=== PATIENT | female | born 1955 | race Caucasian/White ===

== ENCOUNTER → 2020-03-18 17:41 | Outpatient (CLI) | payer OTHER, SELFPAY | PROVIDERS: PCP Psychiatry & Neurology Neurology; Visit Provider Family Medicine | DX: Z03.818 Encounter for observation for suspected exposure to other biological agents ruled out (principal) | CPT/HCPCS: 87635; G2023; U0003 ==

== ENCOUNTER 2021-09-28 12:54 | Inpatient (IN) | payer MEDICARE, OTHER, SELFPAY ==
[2021-09-28 12:55] VITALS: BP 138/65; PULSE 97; RESP 18; TEMP 36.4; O2SAT 97; BMI 28.9
--- NOTE | 2021-09-28 13:00 | RAD_ITS ---
STUDY: X-RAY - LEFT KNEE REASON FOR EXAM: Female, 66 years old. pain with walking TECHNIQUE: 4 view(s) of the knee. COMPARISON: None. FINDINGS: Normal visualized distal femur. Normal visualized proximal tibia and fibula. Normal proximal tibiofibular articulation. Normal medial femorotibial compartment. Normal lateral femorotibial compartment. Normal patellofemoral articulation. The soft tissue structures are unremarkable. RAD/Knee 4 or More Views IMPRESSION: Normal x-ray examination of the knee. Electronically Signed: Elijah Casper MD at 13:41 EST Tel , Service support ,
--- NOTE | 2021-09-28 13:17 | RAD_ITS ---
STUDY: X-RAY - RIGHT KNEE REASON FOR EXAM: Female, 66 years old. PAIN TECHNIQUE: . 4 view(s) of the knee. COMPARISON: None. FINDINGS: Normal visualized distal femur. Normal visualized proximal tibia and fibula. Normal proximal tibiofibular articulation. Normal medial femorotibial compartment. Normal lateral femorotibial compartment. Normal patellofemoral articulation. The soft tissue structures are unremarkable. RAD/Knee 4 or More Views IMPRESSION: Normal x-ray examination of the knee. Electronically Signed: Elijah Casper MD at 13:42 EST Tel , Service support ,
--- NOTE | 2021-09-28 15:46 | ED.VIS.LOWEX ---
HPI History of Present Illness Chief Complaint: Lower Extremity Injury Informant: patient and spouse/S.O. Narrative Narrative: Patient's had 2 or 3 days of knee pain. It started she thinks in her right knee but then quickly went to the left. Both are stiff. She is able to lift them and move them and walk but it is painful. No trauma. She has not had fevers or chills. She does have a history of arthritis mostly in her left knee. It will bother her sometimes but this is more than normal and it does not normally occur to both knees at the same time. She denies any other joints bothering her. She did have Covid vaccine about 2 weeks ago. She also just finished antibiotics yesterday for a dental infection of the right lower jaw. That is doing better. She is not sure what antibiotic that was. [facility] Medical History Arthritis Diabetes Home Medications hydrochlorothiazide 12.5 mg PO DAILY 09/28/21 [History Last Taken Unknown] insulin glargine [Lantus Solostar U-100 Insulin] 40 unit SUBCUT QHS 09/28/21 [History Last Taken Unknown] liraglutide [Victoza 3-Dion] 1.8 mg SUBCUT DAILY 09/28/21 [History Last Taken Unknown] metformin 1,000 mg PO BID 09/28/21 [History Last Taken Unknown] omeprazole 40 mg PO DAILY 09/28/21 [History Last Taken Unknown] Allergy/AdvReac Type Severity Reaction Status Date / Time Penicillins [PCN] Allergy Shortness Verified 09/28/21 12:59 of breath Sulfa (Sulfonamide Allergy Shortness Verified 09/28/21 12:59 Antibiotics) of breath Nacmuat-VKB-FqA Reductase AdvReac Other Verified 09/28/21 12:59 Inhibitor Surgical History Hx of appendectomy Hx of cholecystectomy Hx of hysterectomy Hx of rotator cuff surgery Social History Smoking Status: Never smoker ROS ROS ED Constitutional Constitutional ED: Denies chills or fever(s) ENT ENT ED: Denies rhinorrhea Cardiovascular Cardiovascular: Denies chest pain or palpitations Respiratory/Chest Respiratory/Chest: Denies dyspnea Gastrointestinal Gastrointestinal: Denies nausea or vomiting Genitourinary Genitourinary ED: Denies dysuria Musculoskeletal Musculoskeletal: Reports arthralgias; Denies back pain, myalgias or neck pain Integumentary Denies abscess or rash Neurologic Neurologic: Denies headache(s) Endocrine Endocrinology: Denies polydipsia or polyuria Hematologic/Lymphatic Hematologic/Lymphatic: Denies easy bleeding or easy bruising Allergic/Immunologic Allergic/Immunologic ED: Denies mouth swelling or urticaria EXAM Physical Exam Const Vital Signs: 09/28/21 12:55 09/28/21 21:20 Temperature 97.6 F L Temperature Source Temporal Pulse Rate 97 Respiratory Rate 18 Blood Pressure 138/65 H 129/54 H Blood Pressure Mean 89 79 Pulse Ox 97 Oxygen Delivery Method Room Air Positive well nourished and well developed General Appearance ED: well developed and NAD HEENT normocephalic and atraumatic Chest Wall inspection of chest normal Resp normal respiratory effort and clear to auscultation bilaterally Cardio regular rate and regular rhythm GI non-tender Palpation: soft Back/Spine no CVA tenderness Extremity Extremity Narrative: Patient's left knee has a minimal effusion. She states it normally is a bit swollen though. That is the knee with most arthritis. It is not red. It is not hot. I can passively move both knees. She can lift her legs off the bed. She can move her knees. She has pain diffusely around the knee. There is no leg swelling. There is no cord. There is no edema. Neuro Sensorium / Orientation: alert Psych mental status grossly normal Skin Lesions: no lesions Rashes: no rashes MDM MDM MDM Narrative Medical decision making narrative: Patient's x-ray show arthritic changes but no fracture. Her blood work was concerning for infection with elevated white count at 17.9. C-reactive protein was up at 240. ESR was high at 91. Electrolytes did show some mildly low potassium. Procedure: Left knee joint aspiration: With recent dental infection and those labs we did discuss risk benefits and proceeded to do arthrocentesis left knee. The area was sterilely prepped and draped with sterile towels. ChloraPrep was used. Full sterile gloves and mask was used. 4 cc of 1% lidocaine was infiltrated. Then an 18-gauge needle was used to aspirate approximately 13 cc of purulent yellow-white opaque thick fluid. Clinically this looks to be infected. Laboratory evaluation on the synovial fluid shows very likely signs of infection with almost 200,000 white count and PMN predominance. I discussed case with orthopedic surgeon, Dr. Domingo. He recommended antibiotics after tapping the other knee. The right knee is painful which is not typical for the patient. But is not red. It is not swollen. I did discuss this with the patient. We did attempt to aspirate this. I was able to get needle under the patella and pretty sure I was in joint space but could not get any fluid out. Patient will be admitted. She is given antibiotics. Procedure: Right knee joint aspiration: Same process used on first knee. Sterile prep and drape, ChloraPrep, 4 cc of 1% lidocaine, 18-gauge needle on 20 cc syringe. However I was not able to get any fluid out. Patient tolerated well. Lab Data Attestation: I reviewed the patient's lab results. Labs: Laboratory Results - last 24 hr 09/28/21 09/28/21 09/28/21 16:10 16:10 19:00 WBC 17.9 H RBC 4.48 Hgb 12.3 Hct 37.9 MCV 84.6 MCH 27.5 MCHC 32.5 RDW Std Deviation 45.3 H RDW Coeff of Yunior 14.7 H Plt Count 355 MPV 10.0 Immature Gran % (Auto) 0.800 Neut % (Auto) 70.4 H Lymph % (Auto) 15.6 L [place] % (Auto) 6.9 Eos % (Auto) 5.9 H Baso % (Auto) 0.4 Absolute Neuts (auto) 12.6 H Absolute Lymphs (auto) 2.78 Nucleated RBC % 0 Differential Comment SCANNED ESR 91 H Sodium 134 L Potassium 3.0 L Chloride 96 L Carbon Dioxide 29.0 Anion Gap 9 BUN 15 Creatinine 0.91 Estim Creat Clear Calc 48.10 Est GFR (MDRD) Af Amer 79 Est GFR (MDRD) Non-Af 66 BUN/Creatinine Ratio 16.5 Glucose 123 H Calcium 9.4 C-React Prot Ext Range 240.00 H Fluid Crystals See PATH REV Fluid Crystal Source SYNOVIAL Fl Crystal Path Review Will follow Synovial Source LEFT KNEE Synovial Color Yellow Synovial Appearance Turbid Synovial WBC 198.2400 H Synovial RBC 0.080 H Synovial Tot Cell Ct 201.0800 H Synov Polynuclear WBCs 153.300 Synov Mononuclear WBCs 45.920 Synovial Neutrophils 98 H Synovial Lymphocytes 2 Synovial Polynuclear % 76.8 Synovial Mononuclear % 23.[address] Comment May follow Radiography Diagnostic Testing: Clinical Impression(s) from Imaging Studies Knee X-Ray 09/28/21 13:00 IMPRESSION: Normal x-ray examination of the knee. Electronically Signed: Elijah Casper MD at 13:41 EST Tel , Service support , Knee X-Ray 09/28/21 13:17 IMPRESSION: Normal x-ray examination of the knee. Electronically Signed: Elijah Casper MD at 13:42 EST Tel , Service support , Procedures Other Procedures Procedure(s): See medical decision making note. Discharge Plan Dx/Rx/DC Orders Clinical Impression: Septic arthritis, Leukocytosis, Knee pain Disposition Disposition: Acute Care [facility]
[2021-09-28 16:19] LABS: Absolute Lymphocyte Count 2.78 X10^3/uL (0.83-4.51); Absolute Neutrophil Count 12.6 X10^3/uL (2.0-7.7); Basophil# 0.07 X10^3/uL; Basophil% 0.4 % (0-1); Eosinophil# 1.06 X10^3/uL; Eosinophils% 5.9 % (0-5); Hematocrit 37.9 % (37-47); Hemoglobin 12.3 g/dL (12.0-15.0); Lymphocyte # 2.78 X10^3/ul (0.83-4.51); Lymphocyte % 15.6 % (19-41); Mean Corp Hgb Conc 32.5 g/dL (32-36); Mean Corpuscular Hgb 27.5 pg (27.0-32.0); Mean Corpuscular Volume 84.6 fL (81-99); Monocyte# 1.24 X10^3/uL; Monocyte% 6.9 % (0-10); NRBC Flagged by Analyzer 0 % (0-5); Neutrophil # 12.57 X10^3/uL (2.7-7.7); Neutrophil % 70.4 % (47-70); POSITIVE MORPHOLOGY YES; Platelet Count 355 K/mm3 (150-450); RBC Distribution Width CV 14.7 % (11.6-14.6); RBC Distribution Width SD 45.3 fl (35.1-43.9); Red Blood Count 4.48 M/mm3 (4.2-5.4); White Blood Count 17.9 K/mm3 (4.4-11.0)
[2021-09-28 16:21] LABS: Differential Indicated SCAN CRITERIA MET
[2021-09-28 16:34] LABS: Erythrocyte Sedimentation Rate 91 mm/hr (0-30)
[2021-09-28 16:43] LABS: Anion Gap 9 (5-15); BUN 15 mg/dL (7-18); BUN/Creat Ratio 16.5 RATIO (10-20); Calcium,Total 9.4 mg/dL (8.5-10.1); Chloride 96 mmol/L (98-107); Creatinine, Serum 0.91 mg/dL (0.55-1.02); EST Glomerular Filtration Rate 66 mL/min (>60); Est Glom Filt Rate - Afr Amer 79 mL/min (>60); Glucose 123 mg/dL (74-106); Sodium Level 134 mmol/L (136-145)
[2021-09-28 16:46] LABS: Differential Comment SCANNED
[2021-09-28] MEDS: Lidocaine 1% (20 ml mdv) 20 ML Vial 10 ML INFILT (17:55)
[2021-09-28 19:32] LABS: Pathologist Comment May follow
[2021-09-28 20:19] LABS: AUTO B FLUID DILUENT BKGD CT WBC <0.1 RBC <0.01 (W<.1,R<.01)
[2021-09-28 20:20] LABS: Source- Body Fluid SYNOVIAL
[2021-09-28 20:21] LABS: Appearance /Synovial Fluid Turbid (CLEAR); Color / Synovial Fluid Yellow (Pale Yellow); Source / Synovial Fluid LEFT KNEE
[2021-09-28 21:20] VITALS: BP 129/54
[2021-09-28 22:04] LABS: CRYSTALS, BODY FLUID See PATH REV; Lymph 2 %; Neutrophil 98 % (0-25)
[2021-09-28 22:05] LABS: Body Fluid QC Type(s) BF1Q.BF2Q
[2021-09-28 23:41] LABS: Synovial Fld Mononuclear WBC % 23.2 %; Synovial Fld Polynuclear WBC % 76.8 %
[2021-09-29] VITALS (13 sets, daily range): BP systolic 118–168; BP diastolic 60–90; PULSE 82–88; RESP 16–18; TEMP 36.4–38.2; O2SAT 92–100; BMI 27.9
--- NOTE | 2021-09-29 00:03 | HP.PCM.HOS_ITS ---
HPI - General General Date of Admission: 09/28/21 HPI Narrative ADELE GALAVIZ, is a 66 F with a significant for diabetes mellitus who presents to the emergency department with a persistence left knee pain that started about 3 days ago [employer]IE[employer]ATOR. Associated with her symptoms is swelling of the left knee. The pain increases with movements. She denies any ameliorating factors to the pain. Also patient has some mild pain in her right knee. Reportedly she recently completed antibiotics for dental infection. [facility] Medical History Arthritis Diabetes Home Medications hydrochlorothiazide 12.5 mg PO DAILY 09/28/21 [History Last Taken Unknown] insulin glargine [Lantus Solostar U-100 Insulin] 40 unit SUBCUT QHS 09/28/21 [History Last Taken Unknown] liraglutide [Victoza 3-Dion] 1.8 mg SUBCUT DAILY 09/28/21 [History Last Taken Unknown] metformin 1,000 mg PO BID 09/28/21 [History Last Taken Unknown] omeprazole 40 mg PO DAILY 09/28/21 [History Last Taken Unknown] Allergy/AdvReac Type Severity Reaction Status Date / Time Penicillins [PCN] Allergy Shortness Verified 09/28/21 12:59 of breath Sulfa (Sulfonamide Allergy Shortness Verified 09/28/21 12:59 Antibiotics) of breath Psamopp-SBK-XzI Reductase AdvReac Other Verified 09/28/21 12:59 Inhibitor Surgical History Hx of appendectomy Hx of cholecystectomy Hx of hysterectomy Hx of rotator cuff surgery Social History Smoking Status: Never smoker ROS ROS Narrative Constitutional: Denies fever, chills, fatigue, anorexia and change in weight Eyes: Denies blurry vision, change in eye color, change in vision, discharge from eye(s), double vision, erythema, eye pain, loss of vision or other HEENT: Denies abnormal hearing, dysphagia, ear pain, epistaxis, headache(s), hearing loss, nasal congestion, nasal discharge, post nasal drip, sinus pressure, sore throat or other Cardiovascular: Denies chest pain or palpitations. Denies dyspnea on exertion, orthopnea and paroxysmal nocturnal dyspnea Respiratory/Chest: Denies cough, excessive phlegm production, shortness of breath with exertion and wheezing Gastrointestinal: Denies abdominal pain, coffee ground emesis, constipation, diarrhea, dyspepsia, hematemesis, hematochezia, loose stools, melena, nausea, vomiting or other Genitourinary: Denies burning urination, difficulty urinating, dysuria, hematuria, nocturia, urinary frequency, urinary hesitancy, urinary incontinence, urinary urgency or other Musculoskeletal: Bilateral knee pain, left worse than right. Swelling of left knee. Neurologic: Denies abnormal gait, abnormal speech, confusion, disequilibrium, dizziness, focal weakness, headache(s), numbness, paresthesias, seizure-like activity, seizures, syncope, tingling, tremor(s) or other Psychiatric: Denies anxiety, depression, homicidal ideation, suicidal ideation or other Endocrinology: Denies change in body appearance, cold intolerance, excessive sweating, heat intolerance, polydipsia, polyuria or other Hematologic/Lymphatic: Denies anemia, easy bleeding, easy bruising, lymphadenopathy or other Integumentary: Denies rashes Allergic/Immunologic: Denies rhinitis, hives, eczema, asthma or other Vital Signs Vital Signs Vital Signs: 09/28/21 12:55 09/28/21 21:20 Temperature 97.6 F L Temperature Source Temporal Pulse Rate 97 Respiratory Rate 18 Blood Pressure 138/65 H 129/54 H Blood Pressure Mean 89 79 Pulse Ox 97 Oxygen Delivery Method Room Air Weight Weight: 71.668 kg Body Mass Index (BMI) 28.9 Physical Exam Narrative Physical exam: General: Well-nourished, well-developed. Head: Normocephalic, atraumatic, no tenderness Eyes: PERRLA, EOMI ENT, no trauma, moist mucous membranes, no rhinorrhea Neck: Nontender, full range of motion, no spinal tenderness, deformities, step- off CVS: Regular rate and rhythm. S1-S2 present. No murmur, gallop or rub. Respiratory : clear to auscultation bilaterally, chest wall nontender, no wheezing Abdomen: Soft, nontender, nondistended, normal bowel sounds, no masses : Deferred Back: Nontender, no CVA tenderness, no midline spinal tenderness, deformities, step-offs Extremities: Left knee tenderness and increased warmth of left knee. Right knee with no tenderness and no increase in warmth. Skin: Normal color, no trauma, abrasions Neuro: Alert, oriented, cranial nerves II through XII grossly intact. Psychiatry: Normal mood. Normal affect. Not depressed. Not anxious. Results Lab / Micro Data Result Diagrams: 09/29/21 05:19 09/29/21 05:19 Labs: Laboratory Results - last 24 hr 09/28/21 16:10: WBC 17.9 H, RBC 4.48, Hgb 12.3, Hct 37.9, MCV 84.6, MCH 27.5, MCHC 32.5, RDW Std Deviation 45.3 H, RDW Coeff of Yunior 14.7 H, Plt Count 355, MPV 10.0, Immature Gran % (Auto) 0.800, Neut % (Auto) 70.4 H, Lymph % (Auto) 15.6 L , [place] % (Auto) 6.9, Eos % (Auto) 5.9 H, Baso % (Auto) 0.4, Absolute Neuts (auto) 12.6 H, Absolute Lymphs (auto) 2.78, Nucleated RBC % 0, Differential Comment SCANNED, ESR 91 H 09/28/21 16:10: Sodium 134 L, Potassium 3.0 L, Chloride 96 L, Carbon Dioxide 29.0, Anion Gap 9, BUN 15, Creatinine 0.91, Estim Creat Clear Calc 48.10, Est GFR (MDRD) Af Amer 79, Est GFR (MDRD) Non-Af 66, BUN/Creatinine Ratio 16.5, Glucose 123 H, Calcium 9.4, C-React Prot Ext Range 240.00 H 09/28/21 19:00: Fluid Crystals See PATH REV, Fluid Crystal Source SYNOVIAL, Fl Crystal Path Review Will follow, Synovial Source LEFT KNEE, Synovial Color [place] ow, Synovial Appearance Turbid, Synovial WBC 198.2400 H, Synovial RBC 0.080 H, Synovial Tot Cell Ct 201.0800 H, Synov Polynuclear WBCs 153.300, Synov Mononuclear WBCs 45.920, Synovial Neutrophils 98 H, Synovial Lymphocytes 2, Synovial Polynuclear % 76.8, Synovial Mononuclear % 23.2, Synovial Path Comment May follow Micro: Microbiology 09/28/21 23:11 Nasal Secretion SARS-CoV-2 Antigen (Rapid) - Final 09/28/21 19:00 Fluid - Synovial (joint) Gram Stain - Preliminary Radiology Impression Knee X-Ray 09/28/21 13:00 IMPRESSION: Normal x-ray examination of the knee. Electronically Signed: Elijah Casper MD at 13:41 EST Tel , Service support , Knee X-Ray 09/28/21 13:17 IMPRESSION: Normal x-ray examination of the knee. Electronically Signed: Elijah Casper MD at 13:42 EST Tel , Service support , Assessment & Plan Assessment/Plan (1) Septic arthritis: QUALIFIERS: Laterality: left Septic arthritis location: knee Septic arthritis organism: due to unspecified organism Qualified Code(s): M00.9 - Pyogenic arthritis, unspecified PLAN: Septic arthritis of left knee X-ray of the knee was independently interpreted and agree radiologist interpretation above. Emergency department reported pus from left knee aspiration. There was no fluid to be aspirated from right knee CBC reviewed showed 17.8. Trend CBC. C-reactive protein at the ED was 240. Synovial fluid showed elevated white count Patient has allergy to penicillin. Was started on vancomycin at the emergency department. Discussed with emergent department doctor who started aztreonam. Will continue vancomycin and aztreonam. Emergency department doctor discussed the case with orthopedic doctor who is considering a washout. We will keep patient n.p.o. Orthopedic consult. Hypokalemia On presentation potassium was 3.0. P.o. and IV potassium ordered. Trend BMP. Charges/Coding Visit Charges Inpatient E&M: 11373 Init Hosp L3
[2021-09-29 02:23] LABS: Magnesium 1.8 mg/dL (1.6-2.6)
[2021-09-29] MEDS: Potassium Chloride Oral Tablet 20 MEQ 40 MEQ PO (02:35)
[2021-09-29] MEDS: Acetaminophen 325 MG Tablet 650 MG PO ×2 (02:36→11:14)
[2021-09-29] MEDS: Lactated Ringers 1,000 ML 60 ML IV ×2 (02:40→17:26)
[2021-09-29 02:50] LABS: Bedside Glucose 145 mg/dL (70-110)
--- NOTE | 2021-09-29 03:08 | PCS.PANDOC ---
PANDEMIC DOCUMENTATION INITIATED: Date: 09/29/2020 Time: 020
--- NOTE | 2021-09-29 03:46 | PCM.RX.CS ---
Consult Pharmacy has been consulted to manage selected antiobiotic: Vancomycin Type of Consult: Follow-up Labs: Sodium 134 mmol/L (136-145) L 09/28/21 16:10 Potassium 3.0 mmol/L (3.5-5.1) L 09/28/21 16:10 Chloride 96 mmol/L (98-107) L 09/28/21 16:10 Carbon Dioxide 29.0 mmol/L (21.0-32.0) 09/28/21 16:10 Anion Gap 9 (5-15) 09/28/21 16:10 BUN 15 mg/dL (7-18) 09/28/21 16:10 Creatinine 0.91 mg/dL (0.55-1.02) 09/28/21 16:10 Est GFR (MDRD) Af Amer 79 mL/min (>60) 09/28/21 16:10 Est GFR (MDRD) Non-Af 66 mL/min (>60) 09/28/21 16:10 BUN/Creatinine Ratio 16.5 RATIO (10-20) 09/28/21 16:10 Glucose 123 mg/dL (74-106) H 09/28/21 16:10 Microbiology: Microbiology 09/28/21 23:11 Nasal Secretion SARS-CoV-2 Antigen (Rapid) - Final 09/28/21 19:00 Fluid - Synovial (joint) Gram Stain - Preliminary Goal Trough: 15-20 mcg/mL Pharmacy Plan for Drug Dosing: Pharmacy Service will continue to monitor and adjust dosing as required. Medications Vancomycin HCl 1,750 mg/ (Sodium Chloride) 535 mls @ 250 mls/hr IV X1 ONE Stop: 09/29/21 04:38 Last Admin: 09/29/21 02:40 Dose: Not Given Documented by: Vancomycin HCl 750 mg/ Sodium (Chloride) 265 mls @ 250 mls/hr IV Q12H [facility] Follow-Up Labs: Trough Vancomycin Labs to be done on [date and time ordered]: 09/29 @ 1500
[2021-09-29] MEDS: Potassium Chloride 10mEq/100mL 10 MEQ/100 ML IV.SOLN. 100 MEQ IV BOLUS ×6 (05:24→10:36)
[2021-09-29 05:55] LABS: Absolute Lymphocyte Count 3.48 X10^3/uL (0.83-4.51); Absolute Neutrophil Count 12.8 X10^3/uL (2.0-7.7); Basophil# 0.05 X10^3/uL; Basophil% 0.3 % (0-1); Eosinophil# 0.01 X10^3/uL; Eosinophils% 0.1 % (0-5); Hemoglobin 11.8 g/dL (12.0-15.0); Lymphocyte # 3.48 X10^3/ul (0.83-4.51); Lymphocyte % 19.6 % (19-41); Mean Corp Hgb Conc 32.8 g/dL (32-36); Mean Corpuscular Volume 85.5 fL (81-99); Monocyte# 1.39 X10^3/uL; Monocyte% 7.8 % (0-10); NRBC Flagged by Analyzer 0 % (0-5); Neutrophil # 12.76 X10^3/uL (2.7-7.7); Neutrophil % 71.6 % (47-70); Platelet Count 341 K/mm3 (150-450); RBC Distribution Width CV 14.7 % (11.6-14.6); RBC Distribution Width SD 45.7 fl (35.1-43.9); Red Blood Count 4.21 M/mm3 (4.2-5.4); White Blood Count 17.8 K/mm3 (4.4-11.0)
[2021-09-29 06:20] LABS: Anion Gap 8 (5-15); BUN 14 mg/dL (7-18); Calcium,Total 9.1 mg/dL (8.5-10.1); Chloride 100 mmol/L (98-107); Creatinine, Serum 0.88 mg/dL (0.55-1.02); EST Glomerular Filtration Rate 69 mL/min (>60); Est Glom Filt Rate - Afr Amer 83 mL/min (>60); Estimated Creatinine Clearance 49.74 ml/min; Glucose 146 mg/dL (74-106); Potassium 2.9 mmol/L (3.5-5.1); Sodium Level 137 mmol/L (136-145)
--- NOTE | 2021-09-29 06:40 | RAD_ITS ---
STUDY: X-RAY CHEST REASON FOR EXAM: Female, 66 years old. Surgery TECHNIQUE: Single AP portable view of the chest. COMPARISON: None. FINDINGS: The lungs are clear and expanded. There is no demonstrated pleural abnormality. Normal size heart. Normal mediastinum and kenrick. Normal visualized pulmonary arteries. There is atherosclerotic calcification of the aortic arch with tortuosity. Normal visualized thoracic spine. Normal visualized ribs, clavicles, and shoulders. There is no demonstrated abnormality of the visualized soft tissue structures of the upper abdomen. RAD/Chest 1 View (Portable) IMPRESSION: No acute abnormality is seen. Electronically Signed: Devan Singleton MD at 8:52 EST , Service support ,
--- NOTE | 2021-09-29 06:41 | EKG12_ITS ---
Test Reason : PRE-OP Blood Pressure : / mmHG Vent. Rate : 086 BPM Atrial Rate : 086 BPM P-R Int : 160 ms QRS Dur : 082 ms QT Int : 344 ms P-R-T Axes : 051 037 053 degrees QTc Int : 411 ms Normal sinus rhythm Low voltage QRS Borderline ECG When compared with ECG of 31-JUL-2010 13:01, No significant change was found Confirmed by YAIR JAIME, WARD ([id number]), primer expeditor and drier REDD CALERO ([id number]) on 10/10/2021 8:03:07 AM Referred By: [address] Confirmed By:DOMONIQUE MAZARIEGOS MD
--- NOTE | 2021-09-29 07:44 | PCM.PN.HOSP ---
Subjective Subjective The patient was admitted with bilateral knee pain initially right knee pain persistent for 3 days and then moved to left knee. Patient had arthrocentesis of left knee in ED which shows synovial WBC 201,000, 98% neutrophils, 2% lymphocyte. History of diabetes mellitus. No fever during hospital course. On IV vancomycin and aztreonam Objective Data Objective Data Vital Signs: Vital Signs Temp Pulse Resp BP Pulse Ox 99.6 F H 88 18 131/60 H 100 09/29/21 02:15 09/29/21 02:15 09/29/21 02:15 09/29/21 02:15 09/29/21 02:15 Oxygen Delivery Method Room Air Weight: 152 lb 12.485 oz Body Mass Index (BMI) 27.9 Intake & Output: Intake and Output for Last 24 Hours 09/27/21 09/28/21 09/29/21 23:59 23:59 23:59 Intake Total 641.67 / 641.67 Balance 641.67 / 641.67 Lab / Micro Data Result Diagrams: 09/29/21 05:19 09/29/21 05:19 Labs: Laboratory Results - last 24 hr 09/28/21 16:10: WBC 17.9 H, RBC 4.48, Hgb 12.3, Hct 37.9, MCV 84.6, MCH 27.5, MCHC 32.5, RDW Std Deviation 45.3 H, RDW Coeff of Yunior 14.7 H, Plt Count 355, MPV 10.0, Immature Gran % (Auto) 0.800, Neut % (Auto) 70.4 H, Lymph % (Auto) 15.6 L, [place] % (Auto) 6.9, Eos % (Auto) 5.9 H, Baso % (Auto) 0.4, Absolute Neuts (auto) 12.6 H, Absolute Lymphs (auto) 2.78, Nucleated RBC % 0, Differential Comment SCANNED, ESR 91 H 09/28/21 16:10: Sodium 134 L, Potassium 3.0 L, Chloride 96 L, Carbon Dioxide 29.0, Anion Gap 9, BUN 15, Creatinine 0.91, Estim Creat Clear Calc 48.10, Est GFR (MDRD) Af Amer 79, Est GFR (MDRD) Non-Af 66, BUN/Creatinine Ratio 16.5, Glucose 123 H, Calcium 9.4, C-React Prot Ext Range 240.00 H 09/28/21 16:10: Magnesium 1.8 09/28/21 19:00: Fluid Crystals See PATH REV, Fluid Crystal Source SYNOVIAL, Fl Crystal Path Review Will follow, Synovial Source LEFT KNEE, Synovial Color Yellow, Synovial Appearance Turbid, Synovial WBC 198.2400 H, Synovial RBC 0.080 H, Synovial Tot Cell Ct 201.0800 H, Synov Polynuclear WBCs 153.300, Synov Mononuclear WBCs 45.920, Synovial Neutrophils 98 H, Synovial Lymphocytes 2, Synovial Polynuclear % 76.8, Synovial Mononuclear % 23.2, Synovial Path Comment May follow 09/29/21 02:35: POC Glucose 145 H 09/29/21 05:19: WBC 17.8 H, RBC 4.21, Hgb 11.8 L, Hct 36.0 L, MCV 85.5, MCH 28.0, MCHC 32.8, RDW Std Deviation 45.7 H, RDW Coeff of Yunior 14.7 H, Plt Count 341, MPV 10.0, Immature Gran % (Auto) 0.600, Neut % (Auto) 71.6 H, Lymph % (Auto) 19.6, [place] % (Auto) 7.8, Eos % (Auto) 0.1, Baso % (Auto) 0.3, Absolute Neuts (auto) 12.8 H, Absolute Lymphs (auto) 3.48, Nucleated RBC % 0 09/29/21 05:19: Sodium 137, Potassium 2.9 L, Chloride 100, Carbon Dioxide 29.0, Anion Gap 8, BUN 14, Creatinine 0.88, Estim Creat Clear Calc 49.74, Est GFR (MDRD) Af Amer 83, Est GFR (MDRD) Non-Af 69, BUN/Creatinine Ratio 16.0, Glucose 146 H, Calcium 9.1 Micro: Microbiology 09/28/21 23:11 Nasal Secretion SARS-CoV-2 Antigen (Rapid) - Final 09/28/21 19:00 Fluid - Synovial (joint) Gram Stain - Preliminary Radiography Diagnostic Testing: Radiology Impression Knee X-Ray 09/28/21 13:00 IMPRESSION: Normal x-ray examination of the knee. Electronically Signed: Elijah Casper MD at 13:41 EST Tel , Service support , Knee X-Ray 09/28/21 13:17 IMPRESSION: Normal x-ray examination of the knee. Electronically Signed: Elijah Casper MD at 13:42 EST Tel , Service support , Physical Exam Narrative Seen and examined Right knee pain resolved. Plan for knee joint incision and drainage in afternoon. Patient had right upper premolar tooth infection and was given antibiotic by dentist past Wednesday, 09/24. General: Alert, Oriented x3, Cooperative HEENT: Atraumatic, PERRLA, EOMI, Normocephalic Oral: Tooth infection. No Gingival or Mucosal Lesions/ Ulcerations Neck: Supple, No JVD, Negative Carotid Bruits Lungs: Air entry diminished in bilateral lung bases. No crepitation/rhonchi Cardiovascular: Regular rate, Regular Rhythm, Normal S1, Normal S2, No murmurs Abdomen: Bowel Sounds Present, Soft, Non Tender, Non-Distended : No renal angle tenderness. No suprapubic tenderness. Extremities: No edema, Capillary Refill Less than 3 Seconds Skin: No rashes, No breakdown Musculoskeletal: Left knee is tender. Right knee arthrocentesis attempted but unsuccessful by ED physician Neurological: Cranial nerves II-XII grossly intact, DTR 2+/4 and Symmetrical, Neuro grossly intact Psych/Mental Status: Normal Affect, Appropriate. Assessment & Plan Assessment/Plan (1) Septic arthritis: QUALIFIERS: Septic arthritis location: knee Septic arthritis organism: due to unspecified organism Laterality: left Qualified Code(s): M00.9 - Pyogenic arthritis, unspecified PLAN: Septic arthritis of left knee Patient had left knee arthrocentesis which consistent with septic arthritis. CRP elevated. Synovial neutrophils 98%. X-ray of the knee is reported normal. Patient has leukocytosis. Patient allergic to penicillin and is on vancomycin and aztreonam. Rapid COVID-19 negative. Plan for bilateral knee incision and drainage by Dr. Derick Domingo. Hypokalemia Potassium is replaced. Magnesium 1.8. Phosphorus 3.2 VTE prophylaxis bilateral SCDs. Pharmacological prophylaxis after the knee surgery depending upon the hemostasis. Charges/Coding Visit Charges Inpatient E&M: 05980 Subs Hosp L2
[2021-09-29] MEDS: Morphine 2 MG/ML Syringe IV ×2 (07:49→20:55)
[2021-09-29] MEDS: Pantoprazole Sodium 40 MG Tablet PO (08:11)
[2021-09-29] MEDS: hydroCHLOROthiazide 12.5mg 12.5 MG PO (08:11)
[2021-09-29 08:29] LABS: Hemoglobin A1c 6.6 % (3.8-5.6); Phosphorus 3.2 mg/dL (2.5-4.9)
[2021-09-29] MEDS: Magnesium Chloride 64 MG Delay Rel.Tablet 128 MG PO ×2 (08:54→21:04)
[2021-09-29 11:21] LABS: Bedside Glucose 131 mg/dL (70-110)
--- NOTE | 2021-09-29 11:35 | CASEMGMT ---
EVAN BAIRES Face to Face with patient for initial transition planning/care coordination assessment. RN CM introduced self and role at [facility]. Patient lying in bed, alert and oriented. Patient willing to participate in assessment and is able to answer all questions appropriately. Care providers, pharmacy, and demographics verified. Patient wishes to discharge home, will monitor for HHC pending progress with therapy and possible IV ATBs. Patient states she has no further needs or concerns at this time. CM to follow for discharge planning needs that may arise. PCP: Abigail Specialists: none Preferred Pharmacy: [facility] Insurance: [facility] [place] Benefit: yes Living Will/HPOA: yes, pepito Gordon Copeland LNOK: , daughter Living Arrangements: Patient lives with , granddaughter, and 2 great grandsons in a 2 story home with bed and bath on first floor. Patient states she was independent at home. Transportation: self, DME/HHC: Patient states she has crutches and grab bars at home. Will monitor for walker at discharge. No preferences for DME. No previous HHC or SNF. Will monitor for HHC. Disposition Plan: Patient to discharge home with family support and follow-up plans in place. Will monitor for HHC pending IV ATBs. Felicita COLÓN, RN, CM
--- NOTE | 2021-09-29 13:52 | CHAPLAIN ---
Type of Pastoral Visit _x__ Initial Visit ___ Follow-up Visit ___ On-call Visit ___ General Patient Visit ___ Spiritual Assessment ___ Family Conference ___ Bereavement ___ Rapid Response ___ Code Blue ___ Other (describe below) Pastoral Care Referral From _x__ Patient ___ Family ___ Nurse ___ Physician ___ Supercharger Repair Supervisor ___ Table Operator ___ Other (describe below) Sacrament/Intervention _x__ Active listening ___ Anointing ___ Baptist ___ Bereavement ___ Communion _x__ Agnieszka exploration ___ ___ Life review _x__ Prayer ___ Reconciliation ___ Sacrament of Sick ___ Supportive presence ___ Wedding ___ Other (describe below) Pastoral Comments patient is to have surgery and requested prayer for its success; pt was also texting her Bible Study group and indicated her support is agnieszka and voodoo; pt has a granddaughter and her children that live with her and their care is her other concern at this time
[2021-09-29 13:57] LABS: Pathologist Review Reviewed
--- NOTE | 2021-09-29 14:07 | NURSING ---
pt to surgery
--- NOTE | 2021-09-29 14:41 | CON.PCM.ID_ITS ---
Assessment & Plan Assessment/Plan (1) Septic arthritis: QUALIFIERS: Septic arthritis location: knee Septic arthritis organism: due to unspecified organism Laterality: left Qualified Code(s): M00.9 - Pyogenic arthritis, unspecified PLAN: GNR L knee septic arthritis - OR today. Reports hives and throat swelling with PCN as and age 6. Has not taken other beta lactams. Cont vanc for now and will change aztreo to meropenem and closely monitor. Will follow, thank you. Encouraged her to continue covid series as outpt. HPI Consult Data Date of Consult: 09/29/21 HPI Narrative HPI Narrative: ADELE GALAVIZ, is a 66 F who presented with several days progressive R knee pain, mild swelling. Had a toothache starting about 2 weeks ago. Saw dentist, given clinda, completed that around 09/24. On 09/26, had some chills, some R knee pain. On 09/27, R knee was relatively normal, but L knee worsening. Sx progressed, came to ED, aspiration done, started on vanc/aztreo, plan is for OR today. Has had 1st covid shot. No fever. Full ROS performed and neg except as noted above. [facility] Medical History Arthritis Diabetes Home Medications hydrochlorothiazide 12.5 mg PO DAILY 09/28/21 [History Last Taken Unknown] insulin glargine [Lantus Solostar U-100 Insulin] 40 unit SUBCUT QHS 09/28/21 [History Last Taken Unknown] liraglutide [Victoza 3-Dion] 1.8 mg SUBCUT DAILY 09/28/21 [History Last Taken Unknown] metformin 1,000 mg PO BID 09/28/21 [History Last Taken Unknown] omeprazole 40 mg PO DAILY 09/28/21 [History Last Taken Unknown] Allergy/AdvReac Type Severity Reaction Status Date / Time Penicillins [PCN] Allergy Shortness Verified 09/28/21 12:59 of breath Sulfa (Sulfonamide Allergy Shortness Verified 09/28/21 12:59 Antibiotics) of breath Rrjcjtt-FRF-PcV Reductase AdvReac Other Verified 09/28/21 12:59 Inhibitor Surgical History Hx of appendectomy Hx of cholecystectomy Hx of hysterectomy Hx of rotator cuff surgery Social History Smoking Status: Never smoker Physical Exam Const alert, oriented x3 and no apparent distress General Appearance: cooperative Exam Limitations: no limitations HEENT normocephalic and head/scalp atraumatic Eyes PERRL and EOMs intact bilaterally Neck supple and No nodes Resp normal air movement and clear to auscultation bilaterally Cardio regular rate and regular rhythm GI normal to inspection, nondistended, normoactive bowel sounds Extremity Extremity Narrative: L knee swelling, pain Skin no rashes or lesions noted Neuro CN's II-XII intact bilaterally Lab / Micro Data Result Diagrams: 09/29/21 05:19 09/29/21 05:19 Labs: Laboratory Results - last 24 hr 09/28/21 16:10: WBC 17.9 H, RBC 4.48, Hgb 12.3, Hct 37.9, MCV 84.6, MCH 27.5, MCHC 32.5, RDW Std Deviation 45.3 H, RDW Coeff of Yunior 14.7 H, Plt Count 355, MPV 10.0, Immature Gran % (Auto) 0.800, Neut % (Auto) 70.4 H, Lymph % (Auto) 15.6 L , [place] % (Auto) 6.9, Eos % (Auto) 5.9 H, Baso % (Auto) 0.4, Absolute Neuts (auto) 12.6 H, Absolute Lymphs (auto) 2.78, Nucleated RBC % 0, Differential Comment SCANNED, ESR 91 H 09/28/21 16:10: Sodium 134 L, Potassium 3.0 L, Chloride 96 L, Carbon Dioxide 29.0, Anion Gap 9, BUN 15, Creatinine 0.91, Estim Creat Clear Calc 48.10, Est GFR (MDRD) Af Amer 79, Est GFR (MDRD) Non-Af 66, BUN/Creatinine Ratio 16.5, Glucose 123 H, Calcium 9.4, C-React Prot Ext Range 240.00 H 09/28/21 16:10: Magnesium 1.8 09/28/21 19:00: Fluid Crystals See PATH REV, Fluid Crystal Source SYNOVIAL, Fl Crystal Path Review Reviewed, Synovial Source LEFT KNEE, Synovial Color Yellow, Synovial Appearance Turbid, Synovial WBC 198.2400 H, Synovial RBC 0.080 H, Synovial Tot Cell Ct 201.0800 H, Synov Polynuclear WBCs 153.300, Synov Mononuclear WBCs 45.920, Synovial Neutrophils 98 H, Synovial Lymphocytes 2, Synovial Polynuclear % 76.8, Synovial Mononuclear % 23.2, Synovial Path Comment May follow 09/29/21 02:35: POC Glucose 145 H 09/29/21 05:19: WBC 17.8 H, RBC 4.21, Hgb 11.8 L, Hct 36.0 L, MCV 85.5, MCH 28.0, MCHC 32.8, RDW Std Deviation 45.7 H, RDW Coeff of Yunior 14.7 H, Plt Count 341, MPV 10.0, Immature Gran % (Auto) 0.600, Neut % (Auto) 71.6 H, Lymph % (Auto) 19.6, [place] % (Auto) 7.8, Eos % (Auto) 0.1, Baso % (Auto) 0.3, Absolute Neuts (auto) 12.8 H, Absolute Lymphs (auto) 3.48, Nucleated RBC % 0 09/29/21 05:19: Sodium 137, Potassium 2.9 L, Chloride 100, Carbon Dioxide 29.0, Anion Gap 8, BUN 14, Creatinine 0.88, Estim Creat Clear Calc 49.74, Est GFR (MDRD) Af Amer 83, Est GFR (MDRD) Non-Af 69, BUN/Creatinine Ratio 16.0, Glucose 146 H, Calcium 9.1 09/29/21 05:19: Hemoglobin A1c 6.6 H 09/29/21 05:19: Phosphorus 3.2 09/29/21 11:11: POC Glucose 131 H Micro: Microbiology 09/28/21 19:00 Fluid - Synovial (joint) Gram Stain - Final 09/28/21 19:00 Fluid - Synovial (joint) Body Fluid Culture - Preliminary GNR Possible Haemophilus sp. 09/28/21 23:11 Nasal Secretion SARS-CoV-2 Antigen (Rapid) - Final Radiology Impression Chest X-Ray 09/29/21 06:40 IMPRESSION: No acute abnormality is seen. Electronically Signed: Devan Singleton MD at 8:52 EST , Service support ,
--- NOTE | 2021-09-29 15:07 | VDLE_ITS ---
Reason For Study: Pain RIGHT LEFT CFV is compressible, spontaneous, phasic, GSV is normal. competent and demonstrates normal CFV is compressible, spontaneous, phasic, augmentation. competent, and demonstrates normal Procedure augmentation. This is a venous duplex using B-mode, color FV is compressible, spontaneous, phasic, flow and spectral Doppler. competent and demonstrates normal Exam performed portable in patient room. augmentation. A preliminary report was called and/or faxed POP V is compressible, spontaneous, phasic, to Dr. Domingo. competent and demonstrates normal augmentation. T/P Trunk is compressible. PTV is compressible. LT PerV is compressible. VL/Venous Duplex US, Unilateral Interpretation Summary There is no evidence of left lower extremity deep vein thrombosis. Left great s aphenous vein appears patent and compressible segmentally. Normal flow patterns right common femoral vein Ordering Physician: Derick Domingo Referring Physician: Bubba Hayes Performed By: Joy Armas, NATHALIE, RVT
--- NOTE | 2021-09-29 15:28 | PCM.CONS.GEN ---
Assessment & Plan Assessment/Plan (1) Septic arthritis: QUALIFIERS: Septic arthritis location: knee Septic arthritis organism: due to unspecified organism Laterality: left Qualified Code(s): M00.9 - Pyogenic arthritis, unspecified PLAN: Her diagnosis and treatment options regarding her left knee sepsis discussed with her and her at length. She would like to proceed with surgical intervention. Ultrasound was ordered stat to rule out DVT. If ultrasound is positive treatment may consist of Zully filter placement prior to proceeding with left knee arthroscopy. If ultrasound is negative we will plan to proceed with left knee arthroscopy. Risk of surgery including but not limited to from operative or postoperative complications. Risk of anesthetic complications such as heart attacks, strokes, seizures, or . Risk of infections. Risk of damage to nerves arteries tendons. Risk of inadvertent fractures or dislocations. Risk of bone or wound healing complications. Possibility of nonunion malunion pain stiffness weakness. Possible need for further surgery such as hardware removal. Risk of DVT PE and other potential complications could lead to or disability explained. No guarantees were stated or implied. All of their questions were answered. Appropriate informed consent was obtained and signed for surgical intervention. She will continue on IV antibiotics as per the hospitalist/infectious disease service. HPI Consult Data Date of Consult: 09/29/21 HPI Narrative HPI Narrative: ADELE GALAVIZ, is a 66 F who presents with severe left knee pain. She has been having severe left knee pain since Wednesday. She also developed calf pain. 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 Treated many years ago with 6 months of blood thinner. She denies chest pain or shortness of breath. Left knee pain 8 out of 10. Right knee pain 1 out of 10. She feels like her right knee is great compared to left. She did have a dental infection about 2 weeks ago. She states she was on antibiotics for a week or 2. She is now off her antibiotics for her dental infection. She denies fever or chills. Denies nausea vomiting. She was brought to the emergency room and diagnosed with a left septic knee based on her fluid appearance and fluid studies. [facility] Medical History Arthritis Diabetes Home Medications hydrochlorothiazide 12.5 mg PO DAILY 09/28/21 [History Last Taken Unknown] insulin glargine [Lantus Solostar U-100 Insulin] 40 unit SUBCUT QHS 09/28/21 [History Last Taken Unknown] liraglutide [Victoza 3-Dion] 1.8 mg SUBCUT DAILY 09/28/21 [History Last Taken Unknown] metformin 1,000 mg PO BID 09/28/21 [History Last Taken Unknown] omeprazole 40 mg PO DAILY 09/28/21 [History Last Taken Unknown] Allergy/AdvReac Type Severity Reaction Status Date / Time Penicillins [PCN] Allergy Shortness Verified 09/28/21 12:59 of breath Sulfa (Sulfonamide Allergy Shortness Verified 09/28/21 12:59 Antibiotics) of breath Ysgozvt-DGO-YwL Reductase AdvReac Other Verified 09/28/21 12:59 Inhibitor Surgical History Hx of appendectomy Hx of cholecystectomy Hx of hysterectomy Hx of rotator cuff surgery Social History Smoking Status: Never smoker ROS ROS Narrative Denies any new or recent problems with eyes ears nose or throat heart or lungs bowel or bladder. Left knee pain as per above Physical Exam Narrative Left knee has a grade 2+ effusion. Left knee motion is 10-30 degrees with severe pain. She is able to do a straight leg raise on the left. She has diffuse tenderness about the left knee. Some warmth and redness. She does have calf pain on the left. She has a positive Homans' sign on the left. She has no right knee pain on palpation. No right knee effusion is palpable. She is very easily able to do a straight leg raise on the right. Right knee motion is 0-120 degrees without pain. Distal pulses and sensation are intact. X-rays have been reviewed showing no obvious acute fractures or dislocations. Mild arthritis of each knee. Laboratory work and vital signs reviewed. Lab / Micro Data Result Diagrams: 09/29/21 05:19 09/29/21 05:19 Labs: Laboratory Results - last 24 hr 09/28/21 16:10: WBC 17.9 H, RBC 4.48, Hgb 12.3, Hct 37.9, MCV 84.6, MCH 27.5, MCHC 32.5, RDW Std Deviation 45.3 H, RDW Coeff of Yunior 14.7 H, Plt Count 355, MPV 10.0, Immature Gran % (Auto) 0.800, Neut % (Auto) 70.4 H, Lymph % (Auto) 15.6 L, [place] % (Auto) 6.9, Eos % (Auto) 5.9 H, Baso % (Auto) 0.4, Absolute Neuts (auto) 12.6 H, Absolute Lymphs (auto) 2.78, Nucleated RBC % 0, Differential Comment SCANNED, ESR 91 H 09/28/21 16:10: Sodium 134 L, Potassium 3.0 L, Chloride 96 L, Carbon Dioxide 29.0, Anion Gap 9, BUN 15, Creatinine 0.91, Estim Creat Clear Calc 48.10, Est GFR (MDRD) Af Amer 79, Est GFR (MDRD) Non-Af 66, BUN/Creatinine Ratio 16.5, Glucose 123 H, Calcium 9.4, C-React Prot Ext Range 240.00 H 09/28/21 16:10: Magnesium 1.8 09/28/21 19:00: Fluid Crystals See PATH REV, Fluid Crystal Source SYNOVIAL, Fl Crystal Path Review Reviewed, Synovial Source LEFT KNEE, Synovial Color Yellow, Synovial Appearance Turbid, Synovial WBC 198.2400 H, Synovial RBC 0.080 H, Synovial Tot Cell Ct 201.0800 H, Synov Polynuclear WBCs 153.300, Synov Mononuclear WBCs 45.920, Synovial Neutrophils 98 H, Synovial Lymphocytes 2, Synovial Polynuclear % 76.8, Synovial Mononuclear % 23.2, Synovial Path Comment May follow 09/29/21 02:35: POC Glucose 145 H 09/29/21 05:19: WBC 17.8 H, RBC 4.21, Hgb 11.8 L, Hct 36.0 L, MCV 85.5, MCH 28.0, MCHC 32.8, RDW Std Deviation 45.7 H, RDW Coeff of Yunior 14.7 H, Plt Count 341, MPV 10.0, Immature Gran % (Auto) 0.600, Neut % (Auto) 71.6 H, Lymph % (Auto) 19.6, [place] % (Auto) 7.8, Eos % (Auto) 0.1, Baso % (Auto) 0.3, Absolute Neuts (auto) 12.8 H, Absolute Lymphs (auto) 3.48, Nucleated RBC % 0 09/29/21 05:19: Sodium 137, Potassium 2.9 L, Chloride 100, Carbon Dioxide 29.0, Anion Gap 8, BUN 14, Creatinine 0.88, Estim Creat Clear Calc 49.74, Est GFR (MDRD) Af Amer 83, Est GFR (MDRD) Non-Af 69, BUN/Creatinine Ratio 16.0, Glucose 146 H, Calcium 9.1 09/29/21 05:19: Hemoglobin A1c 6.6 H 09/29/21 05:19: Phosphorus 3.2 09/29/21 11:11: POC Glucose 131 H Micro: Microbiology 09/28/21 19:00 Fluid - Synovial (joint) Gram Stain - Final 09/28/21 19:00 Fluid - Synovial (joint) Body Fluid Culture - Preliminary GNR Possible Haemophilus sp. 09/28/21 23:11 Nasal Secretion SARS-CoV-2 Antigen (Rapid) - Final Radiology Impression Chest X-Ray 09/29/21 06:40 IMPRESSION: No acute abnormality is seen. Electronically Signed: Devan Singleton MD at 8:52 EST , Service support ,
[2021-09-29 15:45] LABS: Potassium 4.4 mmol/L (3.5-5.1)
--- NOTE | 2021-09-29 15:50 | OP.PCM_ITS ---
Problems Associated Problem List Diagnoses (1) Septic arthritis: Operative Report Date of Procedure: 09/29/21 Preoperative diagnosis: Left septic knee joint Postoperative diagnosis : Same Procedure: Diagnostic video arthroscopy, irrigation and debridement left septic knee Surgeon: Dr. Derick Domingo Anesthesia: General, DR fernandes Special medications: IV antibiotics, meropenem, vancomycin, aztreonam Indications for surgery: Patient is a 66-year-old female with a several day history of left knee pain. Patient failed adequate nonoperative treatment for the knee pain. Due to persistent symptoms, as well as laboratory work they wish to proceed with knee arthroscopy. Findings: Intraoperative findings were consistent with her preoperative history, physical, radiographic exam. Details of procedure: Patient was taken to the OR transfer to the OR table. Nonoperative limb was appropriately padded, NGUYEN hose and SCD applied. Patient was placed under the anesthetic agent. Operative knee was examined. No signs of infection. Operative upper thigh was well-padded and ultimately placed in a well-padded thigh stevenson. Operative lower extremity was prepped and draped in usual orthopedic sterile fashion for the procedure. Local anesthetic agent was sterilely injected into the proposed arthroscopic portals. Lateral portal was established with a knife. Took us through skin only. Dull trocar took us into the joint. Brownish colored pus evacuated, cultured. The scope was placed through the lateral portal. Medial portal and ultimately established using a spinal needle followed by a knife through skin, followed by a dull trocar into the joint. Probe was placed to the medial portal. Patellofemoral joint: No significant arthritis was noted. Patella tracked nicely. No significant plica noted. Mild synovial hypertrophy noted, debrided with a shaver. Medial and lateral gutter: No loose bodies or pathology noted. Intercondylar notch: ACL appeared within normal limits. Nice resting tension. No loose bodies or cystic changes noted. Medial compartment: Chondral surfaces showed grade 1 and grade 2 changes of arthritis. Late shaving chondroplasty carried out. no obvious medial meniscus tear noted and compartment fully probed Lateral compartment: Chondral surfaces are within normal limits. No obvious lateral meniscus tear noted, and compartment fully probed Posterior medial compartment: No loose bodies or pathology noted. Posterior lateral compartment: No loose bodies or pathology noted. 3, 3 L bags of saline used to irrigate throughout the knee joint during the procedure. All compartments of the knee were lightly debrided with the shaver removing any fibrinous tissue. No undue bleeding was noted. Arthroscopic pictures were taken and saved throughout the procedure. Knee was drained of excess fluid. Arthroscopic instruments were removed. Arthroscopic portals closed with simple sutures of 4-0 nylon. Suction drain was placed superior lateral knee joint under standard technique. sterile bandage was applied. Patient was transferred to the room bed and recovery room in satisfactory condition. They will be discharged to home when stable, follow-up in the office in 7-10 days. Patient and the family understand discharge instructions, all of their questions answered. This note was generated with [employer] dictation software. It may contain incorrect words, spelling, and punctuation that were not noted in checking the note before signing.
[2021-09-29] MEDS: Epinephrine (1 mg/ml) 1 MG/ML VIAL (16:15)
[2021-09-29] MEDS: Lidocaine 1% /Epi 1:100 (20ml) 20 ML Vial (16:15)
[2021-09-29 17:25] LABS: Bedside Glucose 124 mg/dL (70-110)
[2021-09-29 18:46] LABS: Bedside Glucose 118 mg/dL (70-110)
[2021-09-29] MEDS: Insulin Lispro 100 UNIT/ML INSULN.PEN SC (23:54)
[2021-09-30] LABS: Bedside Glucose 199 mg/dL (70-110)
[2021-09-30 02:50] VITALS: BP 112/57; PULSE 85; RESP 18; TEMP 37.8; O2SAT 96
[2021-09-30] MEDS: Morphine 2 MG/ML Syringe IV (02:56)
[2021-09-30] MEDS: Insulin Lispro 100 UNIT/ML INSULN.PEN SC ×4 (06:19→21:22)
[2021-09-30 06:24] VITALS: TEMP 37.3
[2021-09-30 06:35] LABS: Bedside Glucose 170 mg/dL (70-110)
--- NOTE | 2021-09-30 07:38 | PN.HOSP_ITS ---
Subjective Subjective Patient had diagnostic video arthroscopy irrigation debridement of left septic knee. Objective Data Objective Data Vital Signs: Vital Signs Temp Pulse Resp BP Pulse Ox 99.2 F H 85 18 112/57 L 96 09/30/21 06:24 09/30/21 02:50 09/30/21 02:50 09/30/21 02:50 09/30/21 02:50 Oxygen Flow Rate (L/min) 2 Oxygen Delivery Method Room Air Weight: 152 lb 12.485 oz Body Mass Index (BMI) 27.9 Intake & Output: Intake and Output for Last 24 Hours 09/28/21 09/29/21 09/30/21 23:59 23:59 23:59 Intake Total 2372.67 / 2872.67 1065 / 1065 Output Total 50 / 80 60 / 60 Balance 2322.67 / 2792.67 1005 / 1005 Lab / Micro Data Result Diagrams: 09/29/21 05:19 09/29/21 15:25 Labs: Laboratory Results - last 24 hr 09/28/21 19:00: Fluid Crystals See PATH REV, Fluid Crystal Source SYNOVIAL, Fl Crystal Path Review Reviewed, Synovial Source LEFT KNEE, Synovial Color Yellow, Synovial Appearance Turbid, Synovial WBC 198.2400 H, Synovial RBC 0.080 H, Synovial Tot Cell Ct 201.0800 H, Synov Polynuclear WBCs 153.300, Synov Mononuclear WBCs 45.920, Synovial Neutrophils 98 H, Synovial Lymphocytes 2, Synovial Polynuclear % 76.8, Synovial Mononuclear % 23.2, Synovial Path Comment May follow 09/29/21 05:19: Hemoglobin A1c 6.6 H 09/29/21 05:19: Phosphorus 3.2 09/29/21 11:11: POC Glucose 131 H 09/29/21 15:25: Potassium 4.4 09/29/21 17:18: POC Glucose 124 H 09/29/21 18:25: POC Glucose 118 H 09/29/21 23:45: POC Glucose 199 H 09/30/21 06:18: POC Glucose 170 H Micro: Microbiology 09/28/21 19:00 Fluid - Synovial (joint) Gram Stain - Final 09/28/21 19:00 Fluid - Synovial (joint) Body Fluid Culture - Preliminary GNR Possible Haemophilus sp. 09/28/21 23:11 Nasal Secretion SARS-CoV-2 Antigen (Rapid) - Final Radiography Diagnostic Testing: Radiology Impression Chest X-Ray 09/29/21 06:40 IMPRESSION: No acute abnormality is seen. Electronically Signed: Devan Singleton MD at 8:52 EST , Service support , Venous Doppler Study 09/29/21 15:07 Interpretation Summary There is no evidence of left lower extremity deep vein thrombosis. Left great saphenous vein appears patent and compressible segmentally. Normal flow patterns right common femoral vein Ordering Physician: Derick Domingo Referring Physician: Bubba Hayes Performed By: Joy Armas, RDCS, RVT Physical Exam Narrative Seen and examined Right knee pain resolved. Plan for knee joint incision and drainage in afternoon. Patient had right upper premolar tooth infection and was given antibiotic by dentist past Wednesday, 09/24. General: Alert, Oriented x3, Cooperative HEENT: Atraumatic, PERRLA, EOMI, Normocephalic Oral: Tooth infection. No Gingival or Mucosal Lesions/ Ulcerations Neck: Supple, No JVD, Negative Carotid Bruits Lungs: Air entry diminished in bilateral lung bases. No crepitation/rhonchi Cardiovascular: Regular rate, Regular Rhythm, Normal S1, Normal S2, No murmurs Abdomen: Bowel Sounds Present, Soft, Non Tender, Non-Distended : No renal angle tenderness. No suprapubic tenderness. Extremities: No edema, Capillary Refill Less than 3 Seconds Skin: No rashes, No breakdown Musculoskeletal: Left knee is tender. Right knee arthrocentesis attempted but unsuccessful by ED physician Neurological: Cranial nerves II-XII grossly intact, DTR 2+/4 and Symmetrical, Neuro grossly intact Psych/Mental Status: Normal Affect, Appropriate. Assessment & Plan Assessment/Plan (1) Septic arthritis: QUALIFIERS: Laterality: left Septic arthritis location: knee Septic arthritis organism: due to unspecified organism Qualified Code(s): M00.9 - Pyogenic arthritis, unspecified PLAN: Septic arthritis of left knee most likely from Lovenox influenzae Patient had left knee arthrocentesis which consistent with septic arthritis. CRP elevated. Synovial neutrophils 98%. X-ray of the knee is reported normal. Patient has leukocytosis. Patient allergic to penicillin as a childhood and is on vancomycin and aztreonam. Rapid COVID-19 negative. 09/30: Patient had video arthroscopy, irrigation and debridement of left septic knee on 09/29. RYLAN drain 60 mL. OR cultures pending. ID consult reviewed and appreciated. Antibiotic aztreonam changed to meropenem. Vancomycin discontinued. Midline ordered plan for 2 weeks of IV ertapenem 1 g daily at discharge and then may need short course of p.o. antibiotic. ID follow-up in 2 weeks recommended. Hypokalemia, correct Potassium is replaced. Magnesium 1.8. Phosphorus 3.2. Repeat potassium 4.4. VTE prophylaxis bilateral SCDs. Pharmacological prophylaxis after the knee surgery depending upon the hemostasis. Plan: Discharge tomorrow a.m as patient having significant left knee pain today as per orthopedic surgeon recommendation Charges/Coding Visit Charges Inpatient E&M: 29487 Subs Hosp L2
[2021-09-30 08:10] VITALS: BP 121/62; PULSE 80; RESP 18; TEMP 37.7; O2SAT 97
[2021-09-30 08:15] VITALS: O2SAT 96
[2021-09-30] MEDS: oxyCODONE 5 MG Tablet PO ×2 (08:22→17:05)
[2021-09-30] MEDS: Magnesium Chloride 64 MG Delay Rel.Tablet 128 MG PO ×2 (08:22→21:23)
[2021-09-30] MEDS: Pantoprazole Sodium 40 MG Tablet PO (08:23)
[2021-09-30] MEDS: hydroCHLOROthiazide 12.5mg 12.5 MG PO (08:23)
[2021-09-30] MEDS: Enoxaparin 30 MG/0.3 ML Syringe SC ×2 (08:25→21:22)
[2021-09-30] MEDS: Lactated Ringers 1,000 ML 60 ML IV ×2 (08:30→21:59)
--- NOTE | 2021-09-30 10:20 | PCM.PN.ID ---
Physical Exam Narrative Feeling ok, knee sore, no fever Const alert and no apparent distress General Appearance: cooperative Resp clear to auscultation bilaterally Cardio regular rate and regular rhythm GI soft to palpation, non-tender and non-distended Skin no rashes or lesions noted ID ID: Route of nutrition/ use of supplements: [] Nutritional Intake: [] IV Site: [] Brown Catheter: [] Assessment & Plan Assessment/Plan (1) Septic arthritis: QUALIFIERS: Septic arthritis location: knee Septic arthritis organism: due to unspecified organism Laterality: left Qualified Code(s): M00.9 - Pyogenic arthritis, unspecified PLAN: H. flu L knee septic arthritis - OR 09/29/[address] Domingo. Reports hives and throat swelling with PCN as infant and age 6. Has not taken other beta lactams. Will stop vanc, cont andria. Will order midline, plan on 2 weeks IV ertapenem 1gm daily at discharge, then may need short course po abx. ID followup in 2 weeks. Will follow. Encouraged her to continue covid series as outpt.
[2021-09-30 11:31] LABS: Bedside Glucose 273 mg/dL (70-110)
--- NOTE | 2021-09-30 11:51 | PN.ORTHO_ITS ---
Subjective Subjective Patient is a 66-year-old female status post left knee arthroscopy with irrigation and debridement of septic knee. Patient still has drain in put out 60 mL since midnight. Cultures from the OR are still pending. Finalize culture from knee aspiration on 09/28/2021 finalized with Haemophilus influenza. Patient had T-max of 100.1 this a.m. No lab work for today. Yesterday white blood count was 17.8. Infectious disease ordered with recommendations while in-house and upon discharge. Patient to get PICC line today. Patient has been up with physical therapy. Reports significant pain with ambulation still. Better than yesterday. Objective Data Objective Data Vital Signs: Vital Signs Temp Pulse Resp BP Pulse Ox 99.8 F H 80 18 121/62 H 96 09/30/21 08:10 09/30/21 08:10 09/30/21 08:10 09/30/21 08:10 09/30/21 08:15 Oxygen Flow Rate (L/min) 2 Oxygen Delivery Method Room Air Weight: 69.3 kg Body Mass Index (BMI) 27.9 Intake & Output: Intake and Output for Last 24 Hours 09/28/21 09/29/21 09/30/21 23:59 23:59 23:59 Intake Total 2372.67 / 2872.67 2088 Output Total 50 / 80 60 / 60 Balance 2322.67 / 2792.67 2028 Lab / Micro Data Result Diagrams: 09/29/21 05:19 09/29/21 15:25 Labs: Laboratory Results - last 24 hr 09/28/21 19:00: Fluid Crystals See PATH REV, Fluid Crystal Source SYNOVIAL, Fl Crystal Path Review Reviewed, Synovial Source LEFT KNEE, Synovial Color Yellow, Synovial Appearance Turbid, Synovial WBC 198.2400 H, Synovial RBC 0.080 H, Synovial Tot Cell Ct 201.0800 H, Synov Polynuclear WBCs 153.300, Synov Mononuclear WBCs 45.920, Synovial Neutrophils 98 H, Synovial Lymphocytes 2, Synovial Polynuclear % 76.8, Synovial Mononuclear % 23.2, Synovial Path Comment May follow 09/29/21 15:25: Potassium 4.4 09/29/21 17:18: POC Glucose 124 H 09/29/21 18:25: POC Glucose 118 H 09/29/21 23:45: POC Glucose 199 H 09/30/21 06:18: POC Glucose 170 H 09/30/21 11:26: POC Glucose 273 H Micro: Microbiology 09/29/21 16:25 Incision/Surgical Site Gram Stain - Final 09/28/21 19:00 Fluid - Synovial (joint) Gram Stain - Final 09/28/21 19:00 Fluid - Synovial (joint) Body Fluid Culture - Final Haemophilus influenzae 09/28/21 23:11 Nasal Secretion SARS-CoV-2 Antigen (Rapid) - Final Radiography Diagnostic Testing: Radiology Impression Venous Doppler Study 09/29/21 15:07 Interpretation Summary There is no evidence of left lower extremity deep vein thrombosis. Left great saphenous vein appears patent and compressible segmentally. Normal flow patterns right common femoral vein Ordering Physician: Derick Domingo Referring Physician: Bubba Hayes Performed By: Joy Armas RDCS, RVT Physical Exam Narrative Patient resting comfortably in bed No signs of acute distress Satting well on room air Limb is warm to touch, Sensation intact throughout entire lower extremity, including saphenous, sural, superficial and deep peroneal, and tibial distribution. Significant pain with passive range of motion through 10 to 20 degrees. She states is improved from yesterday though still significantly painful. DP/PT pulses bounding. RYLAN drain intact with sanguinous fluid Dressing clear dry intact Calf nontender to palpation, no erythema, no edema. Negative Homans Assessment & Plan Assessment/Plan (1) Septic arthritis: QUALIFIERS: Laterality: left Septic arthritis location: knee Septic arthritis organism: due to unspecified organism Qualified Code(s): M00.9 - Pyogenic arthritis, unspecified (2) S/P left knee arthroscopy: PLAN: 1. Continue RYLAN drain. Put out 60 mL today 2. OR cultures pending. Synovial fluid from knee aspiration positive with Haemophilus influenza .we will continue to follow her cultures 3. Continue antibiotic plan per infectious disease. Patient to get PICC line today. 4. We will trend WBCs. 5. Weightbearing as tolerated 6. DVT prophylaxis : Per primary team 7. Pain control: patient instructed to take tylenol 500mg 2 tablets TID. and oxycodone 1-2 tablets every 4-6 hours only as needed for pain control. 8. We will continue to follow patient.
--- NOTE | 2021-09-30 11:52 | CASEMGMT ---
Addendum entered by Felicita Ayon 09/30/21 14:33: EVAN BAIRES received call back from Cinthya at [facility] and after speaking with patient regard cost of ATBs patient is agreeable. Start of care planned for 10/02/20. EVAN BAIRES updated patient. Patient still awaiting [facility] and will fax information when available. CM will continue to follow this patient and plan for a safe discharge. Addendum entered by Felicita Ayon 09/30/21 12:23: EVAN BAIRES received call back from [facility] and they are able to accept the patient with a start of care. Referral sent to [facility] and awaiting call back. EVAN BAIRES updated patient regarding acceptance with [facility]. Original Note: EVAN BAIRES in to discuss discharge planning with patient. Patient will be on 2 weeks of IV ertapenem daily. Patient states she prefers to go home. EVAN BAIRES reviewed C and Infusion companies with patient. Patient states she prefers [facility] and [facility]. EVAN BAIRES called and placed referral to [facility]. EVAN BAIRES sent referral to [facility]. CM will continue to follow this patient and plan for a safe discharge.
[2021-09-30 16:55] VITALS: BP 108/72; PULSE 80; RESP 18; TEMP 37.8; O2SAT 97
[2021-09-30 17:00] LABS: Bedside Glucose 171 mg/dL (70-110)
[2021-09-30] MEDS: Acetaminophen 325 MG Tablet 650 MG PO (17:05)
--- NOTE | 2021-09-30 17:45 | PN.ORTHO_ITS ---
Subjective Subjective Patient is postoperative day #1 from left knee arthroscopic irrigation debridement. She states her knee is feeling much better. She may have some irritation from the drain. She has been walking on it. Denies calf pain or swelling. Denies chest pain or shortness of breath Objective Data Objective Data Left knee bandages on clean and dry. Left knee bandage was removed. There is some dried bloody drainage on the deeper bandage. Drain output was 30 cc over the past 12 hours. Drain output was 110 previously since surgery till 6 AM this morning. Patient is able to do a straight leg raise. Patient has knee motion from 0 to 40 degrees prior to removing the drain. 0 to 90 degrees after removing the drain. Vital Signs: Vital Signs Temp Pulse Resp BP Pulse Ox 100.0 F H 80 18 108/72 97 09/30/21 16:55 09/30/21 16:55 09/30/21 16:55 09/30/21 16:55 09/30/21 16:55 Oxygen Flow Rate (L/min) 2 Oxygen Delivery Method Room Air Weight: 69.3 kg Body Mass Index (BMI) 27.9 Intake & Output: Intake and Output for Last 24 Hours 09/28/21 09/29/21 09/30/21 23:59 23:59 23:59 Intake Total 2372.67 / 2872.67 2088 / 208 Output Total 50 / 80 80 / 80 Balance 2322.67 / 2792.67 2008 Lab / Micro Data Result Diagrams: 09/29/21 05:19 09/29/21 15:25 Labs: Laboratory Results - last 24 hr 09/28/21 19:00: Fluid Crystals See PATH REV, Fluid Crystal Source SYNOVIAL, Fl Crystal Path Review Reviewed, Synovial Source LEFT KNEE, Synovial Color Yellow, Synovial Appearance Turbid, Synovial WBC 198.2400 H, Synovial RBC 0.080 H, Synovial Tot Cell Ct 201.0800 H, Synov Polynuclear WBCs 153.300, Synov M ononuclear WBCs 45.920, Synovial Neutrophils 98 H, Synovial Lymphocytes 2, Sy novial Polynuclear % 76.8, Synovial Mononuclear % 23.2, Synovial Path Comment May follow 09/29/21 18:25: POC Glucose 118 H 09/29/21 23:45: POC Glucose 199 H 09/30/21 06:18: POC Glucose 170 H 09/30/21 11:26: POC Glucose 273 H 09/30/21 16:52: POC Glucose 171 H Micro: Microbiology 09/29/21 16:25 Incision/Surgical Site Gram Stain - Final 09/28/21 19:00 Fluid - Synovial (joint) Gram Stain - Final 09/28/21 19:00 Fluid - Synovial (joint) Body Fluid Culture - Final Haemophilus influenzae 09/28/21 23:11 Nasal Secretion SARS-CoV-2 Antigen (Rapid) - Final Assessment & Plan Assessment/Plan (1) Septic arthritis: QUALIFIERS: Septic arthritis location: knee Septic arthritis organism: due to unspecified organism Laterality: left Qualified Code(s): M00.9 - Pyogenic arthritis, unspecified PLAN: Her diagnosis and treatment options were discussed with her at length. Recommended drain removal. She agreed. This was done under standard sterile technique. She will continue with ice. Compression. She can get her incision wet in a day or 2 if there is no active drainage. She will follow up in the office in 10 days. She will continue on Lovenox for DVT prevention. She has had a previous DVT in that leg. Continue on IV antibiotics per infectious disease service recommendations. Weightbearing as tolerated. Orthopedic service will sign off. Can be notified if there is any orthopedic concerns
[2021-09-30 21:35] LABS: Bedside Glucose 187 mg/dL (70-110)
[2021-09-30 22:58] VITALS: BP 108/59; PULSE 70; RESP 18; TEMP 36.7; O2SAT 97
[2021-10-01 00:30] VITALS: BP 117/68; PULSE 74; RESP 18; TEMP 37.4; O2SAT 97
[2021-10-01] MEDS: 0.9% Saline Lock 10 ML Syringe IV ×2 (00:37→13:04)
--- NOTE | 2021-10-01 00:57 | NURSING ---
While ambulating patient back and forth from bed to bathroom, she c/o feeling dizzy and her balance was off. After returning to bed, a set of vitals was collected t99.3, hr 74, spo2 97%, bp 117/68. After some questions she disclosed that she had been diagnosed with Meniere's Disease. Will continue to monitor, is a x1 assist with walker.
[2021-10-01 03:43] VITALS: BP 112/59; PULSE 80; RESP 16; TEMP 37.3; O2SAT 96
[2021-10-01] MEDS: Acetaminophen 325 MG Tablet 650 MG PO (03:49)
[2021-10-01 06:51] LABS: Absolute Lymphocyte Count 3.23 X10^3/uL (0.83-4.51); Absolute Neutrophil Count 6.9 X10^3/uL (2.0-7.7); Basophil# 0.05 X10^3/uL; Basophil% 0.5 % (0-1); Eosinophil# 0.06 X10^3/uL; Eosinophils% 0.5 % (0-5); Hemoglobin 9.6 g/dL (12.0-15.0); Lymphocyte # 3.23 X10^3/ul (0.83-4.51); Lymphocyte % 29.2 % (19-41); Mean Corpuscular Hgb 27.8 pg (27.0-32.0); Mean Platelet Vol. 10.1 fl (6.2-12.0); Monocyte# 0.68 X10^3/uL; Monocyte% 6.1 % (0-10); NRBC Flagged by Analyzer 0 % (0-5); Neutrophil # 6.93 X10^3/uL (2.7-7.7); Neutrophil % 62.5 % (47-70); Platelet Count 411 K/mm3 (150-450); RBC Distribution Width CV 14.4 % (11.6-14.6); Red Blood Count 3.45 M/mm3 (4.2-5.4); White Blood Count 11.1 K/mm3 (4.4-11.0)
[2021-10-01 07:10] LABS: Anion Gap 9 (5-15); BUN 11 mg/dL (7-18); BUN/Creat Ratio 16.4 RATIO (10-20); Calcium,Total 9.1 mg/dL (8.5-10.1); Chloride 102 mmol/L (98-107); Creatinine, Serum 0.67 mg/dL (0.55-1.02); EST Glomerular Filtration Rate 94 mL/min (>60); Est Glom Filt Rate - Afr Amer 113 mL/min (>60); Estimated Creatinine Clearance 43.77 ml/min; Glucose 183 mg/dL (74-106); Potassium 3.4 mmol/L (3.5-5.1); Sodium Level 137 mmol/L (136-145)
[2021-10-01 07:40] LABS: Bedside Glucose 182 mg/dL (70-110)
[2021-10-01] MEDS: Insulin Lispro 100 UNIT/ML INSULN.PEN SC ×2 (07:40→11:27)
[2021-10-01 08:16] VITALS: O2SAT 98
[2021-10-01 08:44] VITALS: BP 129/59; PULSE 78; RESP 18; TEMP 36.8; O2SAT 98
[2021-10-01] MEDS: Enoxaparin 30 MG/0.3 ML Syringe SC (09:22)
[2021-10-01] MEDS: Magnesium Chloride 64 MG Delay Rel.Tablet 128 MG PO (09:22)
[2021-10-01] MEDS: hydroCHLOROthiazide 12.5mg 12.5 MG PO (09:23)
[2021-10-01] MEDS: Pantoprazole Sodium 40 MG Tablet PO (09:23)
[2021-10-01] MEDS: oxyCODONE 5 MG Tablet PO (09:25)
[2021-10-01] MEDS: Potassium Chloride Oral Tablet 20 MEQ 40 MEQ PO (09:26)
--- NOTE | 2021-10-01 10:43 | CASEMGMT ---
Addendum entered by Jaleesa Curry 10/01/21 13:21: Script for FWW obtained from Dr Rodriguez and faxed to [facility]. TC to Evette @ [employer] for Roman Check on Lovenox--cost is $36.25. Original Note: EVAN BAIRES NOTE: EVAN BAIRES to room. Pt states she spoke w/[facility] yesterday and needed to get her financials in order to make payment and she has done this, so would like to talk w/[facility] again today to make a payment. TC to [facility] and spoke w/Cinthya--she was made aware and states she will call the patient now. Cinthya is aware plan is d/c today w/SOC tomorrow. Midline insertion info has been faxed to [facility] as well and Cinthya aware. Cinthya also made aware HHC has been set up with [facility]. Pt informed EVAN BAIRES she needs a walker and states [facility] for DME co. She denies having other DME needs or other concerns or questions. TC to Ricky @ [facility]. He was made aware of need of FWW and that pt is discharging today. He states they will deliver walker once script is received. TC to Mary @ [facility]. She was made aware plan is still for pt to discharge home today and confirms SOC tomorrow. Pt to receive 1st dose of IV Ertapenem today prior to discharge. Nestor COLÓN RN, CM
--- NOTE | 2021-10-01 10:44 | PCM.HP.STD ---
HPI - General General Date of Admission: 09/28/21 HPI Narrative ADELE GALAVIZ, is a 66 F who presents [facility] Medical History Arthritis Diabetes Home Medications hydrochlorothiazide 12.5 mg PO DAILY 09/28/21 [History Last Taken Unknown] insulin glargine [Lantus Solostar U-100 Insulin] 40 unit SUBCUT QHS 09/28/21 [History Last Taken Unknown] liraglutide [Victoza 3-Dion] 1.8 mg SUBCUT DAILY 09/28/21 [History Last Taken Unknown] metformin 1,000 mg PO BID 09/28/21 [History Last Taken Unknown] omeprazole 40 mg PO DAILY 09/28/21 [History Last Taken Unknown] ertapenem [Invanz] 1 g IV Q24H #14 ea 09/30/21 [Rx Last Taken Unknown] Allergy/AdvReac Type Severity Reaction Status Date / Time Penicillins [PCN] Allergy Shortness Verified 09/28/21 12:59 of breath Sulfa (Sulfonamide Allergy Shortness Verified 09/28/21 12:59 Antibiotics) of breath Gakeyem-PNE-QhP Reductase AdvReac Other Verified 09/28/21 12:59 Inhibitor Surgical History Hx of appendectomy Hx of cholecystectomy Hx of hysterectomy Hx of rotator cuff surgery Social History Smoking Status: Never smoker Vital Signs Vital Signs Vital Signs: 09/30/21 16:55 09/30/21 22:58 10/01/21 00:30 Temperature 100.0 F H 98.0 F 99.3 F H Temperature Source Oral Oral Oral Pulse Rate 80 70 74 Respiratory Rate 18 18 18 Blood Pressure 108/72 108/59 L 117/68 Blood Pressure Mean 84 75 84 Blood Pressure Source Monitor Monitor Monitor Blood Pressure Position Semi-Fowlers Semi-Fowlers Semi-Fowlers Blood Pressure Location Right Arm Right Arm Left Arm Pulse Ox 97 97 97 Oxygen Delivery Method Room Air Room Air Room Air 10/01/21 03:43 10/01/21 08:16 10/01/21 08:44 Temperature 99.2 F H 98.3 F Temperature Source Oral Oral Pulse Rate 80 78 Respiratory Rate 16 18 Blood Pressure 112/59 L 129/59 H Blood Pressure Mean 76 82 Blood Pressure Source Monitor Blood Pressure Position Semi-Fowlers Semi-Fowlers Blood Pressure Location Left Arm Left Arm Pulse Ox 96 98 98 Oxygen Delivery Method Room Air Room Air Weight Weight: 69.3 kg Body Mass Index (BMI) 27.9 Results Lab / Micro Data Result Diagrams: 10/01/21 06:21 10/01/21 06:21 Labs: Laboratory Results - last 24 hr 09/30/21 11:26: POC Glucose 273 H 09/30/21 16:52: POC Glucose 171 H 09/30/21 21:18: POC Glucose 187 H 10/01/21 06:21: WBC 11.1 H, RBC 3.45 L, Hgb 9.6 L, Hct 30.0 L, MCV 87.0, MCH 27.8, MCHC 32.0, RDW Std Deviation 46.0 H, RDW Coeff of Yunior 14.4, Plt Count 411, MPV 10.1, Immature Gran % (Auto) 1.200 H, Neut % (Auto) 62.5, Lymph % (Auto) 29.2, [place] % (Auto) 6.1, Eos % (Auto) 0.5, Baso % (Auto) 0.5, Absolute Neuts (auto) 6.9, Absolute Lymphs (auto) 3.23, Nucleated RBC % 0 10/01/21 06:21: Sodium 137, Potassium 3.4 L, Chloride 102, Carbon Dioxide 26.0, Anion Gap 9, BUN 11, Creatinine 0.67, Estim Creat Clear Calc 43.77, Est GFR (MDRD) Af Amer 113, Est GFR (MDRD) Non-Af 94, BUN/Creatinine Ratio 16.4, Glucose 183 H, Calcium 9.1 10/01/21 07:34: POC Glucose 182 H Micro: Microbiology 09/29/21 16:25 Incision/Surgical Site Gram Stain - Final 09/29/21 16:25 Incision/Surgical Site Wound Culture - Preliminary No growth-Final to follow 09/28/21 19:00 Fluid - Synovial (joint) Gram Stain - Final 09/28/21 19:00 Fluid - Synovial (joint) Body Fluid Culture - Final Haemophilus influenzae 09/28/21 19:00 Fluid - Synovial (joint) Anaerobic Culture - Preliminary No growth in 48 hours.
--- NOTE | 2021-10-01 10:59 | DS.PCM_ITS ---
Providers Date of Admission: 09/28/21 Primary Care Physician: Dr. Bubba Hayes MD Consultations 09/29/21 02:09 Consult: Orthopedics Routine Consulting Provider: Derick Domingo Reason for Consult: septic arthritis EMERGENT Consult: No Notified: Yes Date Notified: 09/28/21 Time Notified: 23:59 Method of Notification: Verbal 09/29/21 10:29 Consult: Infectious Disease Routine Consulting Provider: Dallas Calderon Reason for Consult: septic left knee, growing hemophilus? EMERGENT Consult: No Notified: Yes Date Notified: 09/29/21 Time Notified: 10:29 Method of Notification: Answering Service Reason For Visit: SEPTIC ARTHRITIS Diagnosis Discharge Diagnosis (1) Septic arthritis: Status: Acute Code(s): M00.9 - Pyogenic arthritis, unspecified Qualifiers: Septic arthritis location: knee Septic arthritis organism: due to unspecified organism Laterality: left Qualified Code(s): M00.9 - Pyogenic arthritis, unspecified Medications at Discharge Home Medications Lantus Solostar U-100 Insulin 40 unit SUBCUT QHS 09/28/21 Victoza 3-Dion 1.8 mg SUBCUT DAILY 09/28/21 hydrochlorothiazide 12.5 mg PO DAILY 09/28/21 metformin 1,000 mg PO BID 09/28/21 omeprazole 40 mg PO DAILY 09/28/21 ertapenem [Invanz] 1 g IV Q24H #14 ea 09/30/21 acetaminophen [Tylenol 8 Hour] 650 mg PO Q8H PRN #90 tab 10/01/21 enoxaparin 30 mg SUBCUT Q12H #3 ml 10/01/21 Hospital Course Operations arthroscopy, knee (With I&D) Procedures None Summary of Care Provided Minutes Spent on Discharge: 35 Hospital Course: Mrs. Sweet is a 66-year-old white female who was admitted via the emergency department [facility] on 09/28/2021 with a chief complaint of left knee pain that started approximately 3 days prior to presentation. Her symptoms were associated with left knee swelling and she was having increased pain with movement. On presentation she reported she recently had completed antibiotics for dental infection. She was treated with clindamycin at that time and those antibiotics were completed on 09/24. On admission she rated her left knee pain an 8 out of 10. Joint aspiration was done in the emergency department and a diagnosis of left septic joint was made. She was evaluated by both orthopedic surgery and infectious disease. She was taken to the operating room on 09/29/2021 where a left knee arthroscopy with I&D and irrigation was performed. The aspirate grew out Haemophilus influenza and given her history of penicillin allergy of hives and throat swelling she was discharged home with a midline and the plan for 2 weeks of IV ertapenem 1 g daily. Hemoglobin A1c was assessed given her infection was found to be 6.6. No changes were made in her insulin or other diabetes medication. She was evaluated by therapy services and home therapy was arranged with home health care. Her midline was placed on 09/30/2021. She is weightbearing as tolerated on her left lower extremity and denies the need for any pain medication at discharge. She states Tylenol will likely be sufficient. She does have a history of provoked DVT and will be discharged on enoxaparin 30 mg twice daily until she follows up with orthopedic surgery. She is to follow-up with orthopedics in 10 days for postoperative check. She is also to follow-up with infectious disease in 2 weeks. She was discharged home in stable condition on 10/01/2021. Discharge diagnoses: Septic left knee-Haemophilus influenza Leukocytosis-improving Normocytic anemia secondary to dilution Hypokalemia-replaced GERD Hypertension History of DVT DM-2 controlled Physical Exam Const alert, oriented x3, no apparent distress, no limitations, healthy appearing and well nourished Constitutional Narrative: Overweight upper middle-aged white female sitting up in bed, therapy services at bedside helping her with ambulation, appears comfortable and nontoxic General Appearance: cooperative, comfortable, well kempt and well developed Orientation / Consciousness: awake Exam Limitations: no limitations Nutritional Appearance: overweight HEENT normocephalic, head/scalp atraumatic, hearing grossly normal bilaterally and moist oral mucous membranes HEENT Narrative: Mallampati 2, no thrush Eyes PERRL, EOMs intact bilaterally and conjunctivae normal Eyes Narrative: No scleral icterus Neck no lymphadenopathy, supple and no JVD Neck Narrative: Trachea midline, no thyroid enlargement Resp normal respiratory effort, no retractions, no use of accessory muscles and clear to auscultation bilaterally Auscultation: Negative for crackles, rales, rhonchi or wheezes Cardio regular rate, regular rhythm, S1 normal heart sound, S2 normal heart sound, no murmurs, no rub, no gallops, no clicks and no JVD GI normal to inspection, nondistended, normoactive bowel sounds, soft to palpation, non-tender and non-distended; Negative for hepatosplenomegaly Extremity Extremity Narrative: Trace left lower extremity edema, no cyanosis or clubbing Skin no rashes or lesions noted, skin turgor normal and no jaundice Skin Narrative: Left knee with dressing in place-postoperative Neuro oriented x3, CN's II-XII intact bilaterally, moves all extremities and no focal motor deficits Neuro Narrative: Generalized weakness in the left lower extremity as she is inhibited by some mild pain but no focal deficits Sensorium / Orientation: awake, alert, oriented to person, oriented to place and oriented to time Speech: speech normal Psych affect normal Psych Narrative: Very pleasant Weight / BMI Weight Weight: 69.3 kg Body Mass Index (BMI) 27.9 ABG / Lab / Microbiology Data Result Diagrams: 10/01/21 06:21 10/01/21 06:21 Laboratory: Laboratory Results - last 24 hr 09/30/21 11:26: POC Glucose 273 H 09/30/21 16:52: POC Glucose 171 H 09/30/21 21:18: POC Glucose 187 H 10/01/21 06:21: WBC 11.1 H, RBC 3.45 L, Hgb 9.6 L, Hct 30.0 L, MCV 87.0, MCH 27.8, MCHC 32.0, RDW Std Deviation 46.0 H, RDW Coeff of Yunior 14.4, Plt Count 411, MPV 10.1, Immature Gran % (Auto) 1.200 H, Neut % (Auto) 62.5, Lymph % (Auto) 29.2, [place] % (Auto) 6.1, Eos % (Auto) 0.5, Baso % (Auto) 0.5, Absolute Neuts (auto) 6.9, Absolute Lymphs (auto) 3.23, Nucleated RBC % 0 10/01/21 06:21: Sodium 137, Potassium 3.4 L, Chloride 102, Carbon Dioxide 26.0, Anion Gap 9, BUN 11, Creatinine 0.67, Estim Creat Clear Calc 43.77, Est GFR (MDRD) Af Amer 113, Est GFR (MDRD) Non-Af 94, BUN/Creatinine Ratio 16.4, Glucose 183 H, Calcium 9.1 10/01/21 07:34: POC Glucose 182 H Microbiology: Microbiology 09/29/21 16:25 Incision/Surgical Site Gram Stain - Final 09/29/21 16:25 Incision/Surgical Site Wound Culture - Preliminary No growth-Final to follow 09/28/21 19:00 Fluid - Synovial (joint) Gram Stain - Final 09/28/21 19:00 Fluid - Synovial (joint) Body Fluid Culture - Final Haemophilus influenzae 09/28/21 19:00 Fluid - Synovial (joint) Anaerobic Culture - Preliminary No growth in 48 hours. 09/28/21 23:11 Nasal Secretion SARS-CoV-2 Antigen (Rapid) - Final D/C Instructions Discharge Diet: 1800 Calorie Control Diet Discharge Activity: May Shower (No baths or soaking left knee) Weight Bearing Status: Weight bearing as tolerated Keep extremity elevated above heart level: Operative Extremity Meaningful Use Info Meaningful Use Diagnoses (Choose all that apply): None applicable Discharge Plan Admission Admit Date/Time: 09/28/21 23:54 Primary Reason for Your Visit: Knee pain Attending Provider: Rosalinda Rodriguez Primary Care Provider: Bubba Hayes Consulting Providers: Dallas Calderon ; Derick Domingo Discharge Orders/Prescriptions Prescriptions: New ertapenem [Invanz] 1 gram recon soln 1 g IV Q24H Qty: 14 RF: 0 enoxaparin 30 mg/0.3 mL Syringe 30 mg subcut Q12H Qty: 3 RF: 0 acetaminophen [Tylenol 8 Hour] 650 mg tablet extended release 650 mg PO Q8H PRN (Reason: fever or pain) Qty: 90 RF: 0 Continued omeprazole 40 mg capsule,delayed release(DR/EC) 40 mg PO DAILY RF: 0 metformin 1,000 mg tablet 1,000 mg PO BID RF: 0 hydrochlorothiazide 12.5 mg capsule 12.5 mg PO DAILY RF: 0 Lantus Solostar U-100 Insulin 100 unit/mL (3 mL) insulin pen 40 unit SUBCUT QHS RF: 0 Victoza 3-Dion 0.6 mg/0.1 mL (18 mg/3 mL) pen injector 1.8 mg SUBCUT DAILY RF: 0 Referrals / Follow Up: Bubba Hayes MD [Primary Care Provider] - Dallas Calderon MD [STAFF PHYSICIAN] - Within 1 Month Derick Domingo MD [STAFF PHYSICIAN] - See Referral Note (10 days) Disposition Disposition (needs filled in before D/C Order can be placed): Home Health Service Charges/Coding Visit Charges Inpatient E&M: 17381 Disch Hosp
[2021-10-01 11:36] LABS: Bedside Glucose 208 mg/dL (70-110)
[2021-10-01 13:15] VITALS: BP 130/63; PULSE 83; RESP 18; TEMP 37.3; O2SAT 98
== END 2021-10-01 17:00 | disposition home health service (06) | DRG 502 ==
LOC: ED 23:46 → MS2 09-29 00:49
PROVIDERS: Anesthesiology; Internal Medicine; Orthopaedic Surgery; Admitting Provider Hospitalist; Emergency Provider Emergency Medicine; PCP Psychiatry & Neurology Neurology; Visit Provider Internal Medicine
PROC: 0MDP4ZZ Extraction of Left Knee Bursa and Ligament, Percutaneous Endoscopic Approach (ICD-10-PCS; CPT 29870; principal; 2021-09-29 14:40)
DX: M00.9 Pyogenic arthritis, unspecified (principal); E87.6 Hypokalemia; E11.9 Type 2 diabetes mellitus without complications; Z79.4 Long term (current) use of insulin; Z86.718 Personal history of other venous thrombosis and embolism; Z88.2 Allergy status to sulfonamides; Z88.0 Allergy status to penicillin
CPT/HCPCS: 36415; 71045; 73564; 80048; 82962; 83036; 83735; 84100; 84132; 85025; 85652; 86140; 87070; 87075; 87077; 87205; 87426; 89050; 89051; 89060; 93005; 93971; 97110; 97116; 97162; 97166; 97530; 99251; 99284; J2185; J7040; J7050; J7120; A4216; G0463; J2405

== ENCOUNTER 2021-10-09 16:03 | Outpatient (CLI) | payer MEDICARE, OTHER, SELFPAY ==
[2021-10-09 19:28] LABS: Source / Synovial Fluid LEFT KNEE
[2021-10-09 19:29] LABS: AUTO B FLUID DILUENT BKGD CT WBC <0.1 RBC <0.01 (W<.1,R<.01)
[2021-10-09 19:30] LABS: Appearance /Synovial Fluid Cloudy (CLEAR); Color / Synovial Fluid Pink (Pale Yellow)
[2021-10-09 19:31] LABS: RBC /Synovial Fluid 0.021 10^6/uL (0)
[2021-10-09 19:49] LABS: Lymph 1 %; Monocyte /Synovial Fluid 2 %; Neutrophil 97 % (0-25)
[2021-10-09 20:05] LABS: Body Fluid QC Type(s) BF1Q,BF2Q
[2021-10-10 13:02] LABS: Pathologist Comment Reviewed
== END 2021-10-09 23:59 | disposition short-term general hospital (02) ==
LOC: LABSPEC 16:06
PROVIDERS: PCP Psychiatry & Neurology Neurology; Visit Provider Orthopaedic Surgery
DX: M00.9 Pyogenic arthritis, unspecified (principal)
CPT/HCPCS: 87015; 87070; 87075; 87101; 87116; 87205; 87206; 89050; 89051

== ENCOUNTER 2021-10-13 11:17 | Outpatient (RCR) | payer MEDICARE, OTHER, SELFPAY ==
[2021-10-06 17:48] LABS: Hemoglobin 10.6 g/dL (12.0-15.0); Mean Corp Hgb Conc 31.2 g/dL (32-36); Mean Corpuscular Hgb 28.1 pg (27.0-32.0); Mean Corpuscular Volume 90.2 fL (81-99); Mean Platelet Vol. 9.8 fl (6.2-12.0); POSITIVE COUNT YES; RBC Distribution Width CV 14.6 % (11.6-14.6); RBC Distribution Width SD 48.2 fl (35.1-43.9); Red Blood Count 3.77 M/mm3 (4.2-5.4); White Blood Count 13.2 K/mm3 (4.4-11.0)
[2021-10-06 18:10] LABS: Platelet Count 828 K/mm3 (150-450); Scan Indicated on CBC? Y/N YES- FLAGS NOTED
[2021-10-06 18:12] LABS: Anion Gap 10 (5-15); BUN 19 mg/dL (7-18); BUN/Creat Ratio 24.2 RATIO (10-20); Calcium,Total 9.6 mg/dL (8.5-10.1); Chloride 101 mmol/L (98-107); Creatinine, Serum 0.79 mg/dL (0.55-1.02); EST Glomerular Filtration Rate 78 mL/min (>60); Est Glom Filt Rate - Afr Amer 94 mL/min (>60); Glucose 92 mg/dL (74-106); Potassium 4.2 mmol/L (3.5-5.1); Sodium Level 138 mmol/L (136-145)
[2021-10-06 18:23] LABS: Differential Comment SCANNED; Erythrocyte Sedimentation Rate 79 mm/hr (0-30)
[2021-10-08 09:55] LABS: Pathologist Review Reviewed
[2021-10-13 12:17] LABS: Anion Gap 10 (5-15); BUN 26 mg/dL (7-18); BUN/Creat Ratio 25.5 RATIO (10-20); Chloride 100 mmol/L (98-107); Creatinine, Serum 1.02 mg/dL (0.55-1.02); EST Glomerular Filtration Rate 58 mL/min (>60); Est Glom Filt Rate - Afr Amer 70 mL/min (>60); Glucose 63 mg/dL (74-106); Sodium Level 139 mmol/L (136-145)
[2021-10-13 12:23] LABS: Erythrocyte Sedimentation Rate 48 mm/hr (0-30)
[2021-10-13 12:25] LABS: Hematocrit 39.3 % (37-47); Hemoglobin 11.9 g/dL (12.0-15.0); Mean Corp Hgb Conc 30.3 g/dL (32-36); Mean Corpuscular Hgb 27.7 pg (27.0-32.0); Mean Corpuscular Volume 91.6 fL (81-99); Mean Platelet Vol. 9.7 fl (6.2-12.0); POSITIVE COUNT YES; Platelet Count 1068 K/mm3 (150-450); RBC Distribution Width CV 14.4 % (11.6-14.6); RBC Distribution Width SD 48.2 fl (35.1-43.9); Red Blood Count 4.29 M/mm3 (4.2-5.4); White Blood Count 10.2 K/mm3 (4.4-11.0)
[2021-10-13 12:46] LABS: Scan Indicated on CBC? Y/N YES- FLAGS NOTED
[2021-10-14 13:30] LABS: Pathologist Review Reviewed
== END 2021-10-27 18:00 | disposition home or self-care (01) ==
LOC: HHLAB 11:17
PROVIDERS: PCP Psychiatry & Neurology Neurology; Visit Provider Internal Medicine Infectious Disease
DX: M00.862 Arthritis due to other bacteria, left knee (principal)
CPT/HCPCS: 80048; 85027; 85652

== ENCOUNTER 2021-10-17 15:27 | Outpatient (CLI) | payer MEDICARE, OTHER, SELFPAY ==
[2021-10-17 16:23] LABS: Absolute Lymphocyte Count 4.28 X10^3/uL (0.83-4.51); Absolute Neutrophil Count 5.4 X10^3/uL (2.0-7.7); Basophil# 0.06 X10^3/uL; Basophil% 0.6 % (0-1); Eosinophil# 0.09 X10^3/uL; Eosinophils% 0.9 % (0-5); Hematocrit 37.4 % (37-47); Hemoglobin 11.5 g/dL (12.0-15.0); Lymphocyte # 4.28 X10^3/ul (0.83-4.51); Lymphocyte % 40.7 % (19-41); Mean Corp Hgb Conc 30.7 g/dL (32-36); Mean Corpuscular Hgb 27.6 pg (27.0-32.0); Mean Corpuscular Volume 89.9 fL (81-99); Mean Platelet Vol. 9.4 fl (6.2-12.0); Monocyte% 5.7 % (0-10); NRBC Flagged by Analyzer 0 % (0-5); Neutrophil # 5.44 X10^3/uL (2.7-7.7); Neutrophil % 51.6 % (47-70); Platelet Count 727 K/mm3 (150-450); RBC Distribution Width CV 14.2 % (11.6-14.6); RBC Distribution Width SD 47.1 fl (35.1-43.9); Red Blood Count 4.16 M/mm3 (4.2-5.4); White Blood Count 10.5 K/mm3 (4.4-11.0)
== END 2021-10-17 23:59 | disposition short-term general hospital (02) ==
PROVIDERS: PCP Psychiatry & Neurology Neurology; Visit Provider Internal Medicine Infectious Disease
DX: D75.839 Thrombocytosis, unspecified (principal)
CPT/HCPCS: 36415; 85025